=== PATIENT | female | born 1970 | race Caucasian/White ===

== ENCOUNTER → 2022-07-11 14:09 | Outpatient (CLI) | payer OTHER, SELFPAY ==
--- NOTE | 2022-07-11 14:25 | DI.CT.S_ITS ---
PROCEDURE: CT SINUS SCREEN WO CON INDICATIONS: CHRONIC PANSINUSITIS TECHNIQUE: Noncontrast 3.0 mm axial images acquired from the frontal sinuses to the mid-sella, with coronal and sagittal reformats. For radiation dose reduction, the following was used: automated exposure control, adjustment of mA and/or kV according to patient size. COMPARISON: None. FINDINGS: Image quality: Excellent. Maxillary Sinuses: No bony remodeling or destruction. Sinuses are clear. Ethmoid Air Cells: No bony remodeling or destruction. Sinuses are clear. Sphenoid Sinuses: No bony remodeling or destruction. Sinuses are clear. Frontal Sinuses: No bony remodeling or destruction. Sinuses are clear. Ostiomeatal Complexes: Ostiomeatal complexes are patent. No Malinda cells. Miscellaneous: Visualized intra-orbital contents are normal. No bharathi bullosa or paradoxical turbinate curvature. There is mild rightward nasal septal deviation. IMPRESSION: No significant active paranasal sinus disease. Dictated by: Ben Painting M.D. on 07/11/2022 at 13:34 Approved by: Ben Painting M.D. on 07/11/2022 at 13:35
== END ==
PROVIDERS: Referring Provider Otolaryngology; Visit Provider Otolaryngology
DX: J32.4 Chronic pansinusitis (principal)
CPT/HCPCS: 70486

== ENCOUNTER 2022-11-20 14:43 | Emergency (ER) | payer OTHER, SELFPAY ==
[2022-11-20] VITALS (10 sets, daily range): BP systolic 114–144; BP diastolic 59–95; PULSE 67–82; RESP 16–38; TEMP 36.6; O2SAT 93–98; BMI 35.3
[2022-11-20 15:34] LABS: Add Manual Diff / Slide Review NO; Basophils Absolute Auto 100 /uL (0-100); Basophils Percent Auto 1.1 % (0-2); Eosinophils Absolute Auto 200 /uL (0-450); Eosinophils Percent Auto 1.7 % (2-4); Hematocrit 45.6 % (36-46); Hemoglobin 15.7 g/dL (12.0-16.0); Lymphocytes Absolute Auto 3100 /uL (1100-4500); Lymphocytes Percent Auto 29.7 % (25-40); Mean Corpuscular HGB Conc 34.4 % (30-36); Mean Corpuscular Hemoglobin 32.2 PG (26-34); Mean Corpuscular Volume 93.6 fL (80-100); Monocytes Absolute Auto 700 /uL (0-900); Monocytes Percent Auto 6.5 % (3-14); Neutrophils Absolute Auto 6300 /uL (1500-7000); Platelet Count 264 X10^3/uL (150-400); Red Blood Cell Count 4.88 X10^6/uL (4.0-5.2); Red Cell Distribution Width 13.9 % (11.6-14.8); White Blood Cell Count 10.4 X10^3/uL (4.5-11.0)
[2022-11-20 15:43] LABS: Alanine Aminotransferase 23 IU/L (<35); Albumin 4.2 g/dL (3.5-5.0); Albumin Globulin Ratio 1.1 (1.0-2.8); Alkaline Phosphatase 112 U/L (38-126); Aspartate Aminotransferase 25 IU/L (14-36); BUN Creatinine Ratio 25.8 (6-22); Bilirubin Total 0.5 mg/dL (0.2-1.3); Blood Urea Nitrogen 17 mg/dL (7-17); Calcium 9.5 mg/dL (8.4-10.2); Carbon Dioxide 25 mmol/L (22-32); Chloride 99 mmol/L (98-107); Estimated Glomerular Filt Rate > 60 mL/min (>60); Globulin 3.9 g/dL (1.7-4.1); Glucose 327 mg/dL (70-100); HEMOLYSIS < 15 (0-50); Lipase 66 U/L (23-300); Potassium 4.6 mmol/L (3.4-5.1); Sodium 131 mmol/L (137-145); Total Protein 8.1 g/dL (6.3-8.2)
[2022-11-20 15:52] LABS: Bacteria Urine None Seen; RBC Urine 0-1/HPF (0-5/HPF); Squamous Epithelial Cell Urine 0-1 /HPF (0-5/HPF); WBC Urine 0-1/HPF (0-5/HPF)
[2022-11-20 15:54] LABS: Pregnancy Test Urine Negative (Negative)
[2022-11-20] MEDS: ONDANSETRON 4 MG/2 ML INJ IV (17:25)
[2022-11-20] MEDS: ACETAMINOPHEN 325 MG TABLET 975 MG PO (17:31)
[2022-11-20 18:58] LABS: Appearance Urine UA CLEAR; Bilirubin Urine UA 1+ (NEGATIVE); Color Urine UA YELLOW; Glucose Urine UA 2+ g/dL (Negative); Ketones Urine UA 2+ (NEGATIVE); Leukocyte Esterase Urine UA NEGATIVE (NEGATIVE); Nitrite Urine UA NEGATIVE (Negative); Occult Blood Urine UA TRACE-INTACT (Negative); Protein Urine UA NEGATIVE (Negative); Specific Gravity Urine UA 1.015 (1.000-1.035); Urobilinogen Urine UA 0.2 E.U./dL (0.2)
[2022-11-20 19:03] LABS: Ictotest Urine Negative (Negative)
[2022-11-20] MEDS: SODIUM CHLORIDE 0.9% 1,000 ML 1000 ML IV (19:37)
--- NOTE | 2022-11-20 20:47 | ED_ITS ---
HPI - General Adult General Chief complaint: Diabetic Problem Stated complaint: Possible DKA Time Seen by Provider: 11/20/22 19:43 Source: patient Mode of arrival: Ambulatory History of Present Illness HPI narrative: 52-year-old female nonsmoker with history of diabetes presents with concerns of possible DKA. She is been having dizziness and lightheadedness with headaches for many months and has had extensive workups without any significant findings. Blood glucose has been 3-400 for the past week or so. Recently had change in her medications from Lantus to glargine and suggest this isn't working quite as well. She denies runny nose, sore throat, chest pain or cough. She denies any fever or chills. She is had no urinary complaints denies any diarrhea. Related Data Allergies Allergy/AdvReac Type Severity Reaction Status Date / Time cephalexin [From Keflex] Allergy Unknown Verified 11/20/22 15:11 Sulfa (Sulfonamide Allergy Unknown Verified 11/20/22 15:11 Antibiotics) Review of Systems Review of Systems Narrative: GENERAL: Denies chills, fatigue, malaise, fever, sweats. HEENT: Denies sinus pain, ear pain, sore throat, difficulty swallowing, dizziness. RESPIRATORY: Denies dyspnea, cough, wheezing, hemoptysis, sputum. CARDIOVASCULAR: Denies chest pain, palpitations, orthopnea, edema, GASTROINTESTINAL: Denies nausea, vomiting, abdominal pain, diarrhea, constipation, melena. : Denies dysuria, frequency, incontinence, hematuria, urinary retention. MUSCULOSKELETAL: denies weakness, joint pain, or bony pain SKIN: Denies rash, skin lesions, or other NEUROLOGIC: Denies weakness, headache, numbness, change in speech, confusion, seizures, incoordination. PSYCHIATRIC: No concerning psychosocial issues. 12 point review of systems is negative except for those stated above Patient History Social History Smoking Status: Current every day smoker Smoking Status: Current every day smoker alcohol intake frequency: a few times a month Substance Use Type: marijuana Exam Narrative Exam Narrative: GENERAL: [52] year old patient appears stated age. Well-developed patient, in mild distress. HEAD: Atraumatic. Normocephalic. EYES: Pupils equal round and reactive. Extraocular motions intact. No scleral icterus. No injection or drainage. ENT: Nose without bleeding, purulent drainage. Throat without erythema, tonsillar hypertrophy or exudate. Airway patent. NECK: Trachea midline. Non tender CARDIOVASCULAR: Regular rate and rhythm without murmurs, gallops, or rubs. RESPIRATORY: Clear to auscultation. Breath sounds equal bilaterally. No wheezes, rales, or rhonchi. GASTROINTESTINAL: Abdomen soft, non-tender, nondistended. EXTREMITIES: No edema or joint tenderness. BACK: Nontender without deformity or crepitance. No flank tenderness. NEURO: AOx3. SKIN: No rash or erythema of visible areas Initial Vital Signs Initial Vital Signs: Vital Signs Temperature 97.9 F 11/20/22 15:00 Pulse Rate 67 11/20/22 15:00 Respiratory Rate 18 11/20/22 15:00 Blood Pressure 140/60 11/20/22 15:00 Pulse Oximetry 97 11/20/22 15:00 Oxygen Delivery Method Room Air 11/20/22 15:00 Course Orders Ordered: ED Orders 11/20/22 21:02 VBG [Venous Blood Gas] Stat 11/20/22 21:04 Troponin & CK Cardiac Panel Stat Discontinued Medications Acetaminophen (Acetaminophen 325 Mg Tablet) 975 mg PO NOW ONE Stop: 11/20/22 17:30 Last Admin: 11/20/22 17:31 Dose: 975 mg Documented By: AT Sodium Chloride (Normal Saline 0.9%) 1,000 mls @ 1,000 mls/hr IV BOLUS ONE Stop: 11/20/22 20:32 Last Infusion: 11/20/22 20:59 Dose: 0 mls/hr Documented By: Admin: 11/20/22 19:37 Dose: 1,000 mls/hr Documented By: Lactated Ringer's (Lactated Ringers) 1,000 mls @ 1,000 mls/hr IV BOLUS ONE Stop: 11/20/22 21:53 Last Infusion: 11/20/22 21:59 Dose: 0 mls/hr Documented By: Admin: 11/20/22 21:11 Dose: 1,000 mls/hr Documented By: Ibuprofen (Ibuprofen 400 Mg Tablet) 600 mg PO NOW ONE Stop: 11/20/22 21:50 Last Admin: 11/20/22 21:53 Dose: 600 mg Documented By: SB Ondansetron HCl (Ondansetron 4 Mg Odt) 4 mg PO NOW PRN PRN Reason: Nausea And Vomiting Ondansetron HCl (Ondansetron 4 Mg/2 Ml Inj) 4 mg IV NOW PRN PRN Reason: Nausea And Vomiting Last Admin: 11/20/22 17:25 Dose: 4 mg Documented By: AT Vital Signs Vital signs: Vital Signs - 8 hr 11/20/22 19:30 11/20/22 19:30 11/20/22 20:00 Pulse Rate 74 Respiratory Rate 19 Blood Pressure 127/61 114/63 Pulse Oximetry 96 Oxygen Delivery Method 11/20/22 20:00 11/20/22 20:30 11/20/22 20:30 Pulse Rate 74 70 Respiratory Rate 18 16 Blood Pressure 139/66 Pulse Oximetry 95 98 Oxygen Delivery Method 11/20/22 21:03 11/20/22 21:30 11/20/22 21:30 Pulse Rate 74 75 Respiratory Rate 38 H Blood Pressure 128/59 L Pulse Oximetry 95 93 Oxygen Delivery Method 11/20/22 22:00 Pulse Rate 72 Respiratory Rate 17 Blood Pressure 128/59 L Pulse Oximetry 97 Oxygen Delivery Method Room Air Medical Decision Making Lab Data 11/20/22 15:08 11/20/22 15:08 Labs: Lab Results 11/20/22 11/20/22 11/20/22 Range/Units 15:08 15:08 15:08 WBC 10.4 (4.5-11.0) X10^3/uL RBC 4.88 (4.0-5.2) X10^6/uL Hgb 15.7 (12.0-16.0) g/dL Hct 45.6 (36-46) % MCV 93.6 (80-100) fL MCH 32.2 (26-34) PG MCHC 34.4 (30-36) % RDW 13.9 (11.6-14.8) % Plt Count 264 (150-400) X10^3/uL Neut % (Auto) 61.0 (50-75) % Lymph % (Auto) 29.7 (25-40) % [place] % (Auto) 6.5 (3-14) % Eos % (Auto) 1.7 L (2-4) % Baso % (Auto) 1.1 (0-2) % Neut # (Auto) 6300 (8687-5473) /uL Lymph # (Auto) 3100 (3901-2784) /uL [place] # (Auto) 700 (0-900) /uL Eos # (Auto) 200 (0-450) /uL Baso # (Auto) 100 (0-100) /uL VBG pH (7.33-7.43) VBG pCO2 (45-50) mmHg VBG pO2 (35-45) mmHg VBG HCO3 (24-28) mmol/L VBG Total CO2 (24-29) mmol/L VBG O2 Saturation (70-75) % VBG Base Excess (0-4) mmol/L FiO2 Sodium 131 L (137-145) mmol/L Potassium 4.6 (3.4-5.1) mmol/L Chloride 99 (98-107) mmol/L Carbon Dioxide 25 (22-32) mmol/L BUN 17 (7-17) mg/dL Creatinine 0.66 (0.52-1.04) mg/dL Estimated GFR > 60 (>60) mL/min BUN/Creatinine Ratio 25.8 H (6-22) Glucose 327 H (70-100) mg/dL Calcium 9.5 (8.4-10.2) mg/dL Total Bilirubin 0.5 (0.2-1.3) mg/dL AST 25 (14-36) IU/L ALT 23 (<35) IU/L Alkaline Phosphatase 112 (38-126) U/L Total Creatine Kinase (30-135) U/L CK-MB (CK-2) CK-MB (CK-2) Rel Index Troponin I (0.01-0.034) ng/mL Total Protein 8.1 (6.3-8.2) g/dL Albumin 4.2 (3.5-5.0) g/dL Globulin 3.9 (1.7-4.1) g/dL Albumin/Globulin Ratio 1.1 (1.0-2.8) Lipase 66 (23-300) U/L Urine Color Urine Appearance Urine pH (4.5-8.0) Ur Specific [place] (1.000-1.035) Urine Protein (Negative) Urine Glucose (UA) (Negative) g/dL Urine Ketones (NEGATIVE) Urine Occult Blood (Negative) Urine Nitrate (Negative) Urine Bilirubin (NEGATIVE) Ur Bilirubin Confirm (Negative) Urine Urobilinogen (0.2) E.U./dL Ur Leukocyte Esterase (NEGATIVE) Urine RBC (0-5/HPF) Urine WBC (0-5/HPF) Ur Squamous Epith Cells (0-5/HPF) Urine Bacteria (None) Urine Test (Negative) Ketones Cancelled 11/20/22 11/20/22 11/20/22 Range/Units 15:18 15:18 15:18 WBC (4.5-11.0) X10^3/uL RBC (4.0-5.2) X10^6/uL Hgb (12.0-16.0) g/dL Hct (36-46) % MCV (80-100) fL MCH (26-34) PG MCHC (30-36) % RDW (11.6-14.8) % Plt Count (150-400) X10^3/uL Neut % (Auto) (50-75) % Lymph % (Auto) (25-40) % [place] % (Auto) (3-14) % Eos % (Auto) (2-4) % Baso % (Auto) (0-2) % Neut # (Auto) (5653-0653) /uL Lymph # (Auto) (1522-7705) /uL [place] # (Auto) (0-900) /uL Eos # (Auto) (0-450) /uL Baso # (Auto) (0-100) /uL VBG pH (7.33-7.43) VBG pCO2 (45-50) mmHg VBG pO2 (35-45) mmHg VBG HCO3 (24-28) mmol/L VBG Total CO2 (24-29) mmol/L VBG O2 Saturation (70-75) % VBG Base Excess (0-4) mmol/L FiO2 Sodium (137-145) mmol/L Potassium (3.4-5.1) mmol/L Chloride (98-107) mmol/L Carbon Dioxide (22-32) mmol/L BUN (7-17) mg/dL Creatinine (0.52-1.04) mg/dL Estimated GFR (>60) mL/min BUN/Creatinine Ratio (6-22) Glucose (70-100) mg/dL Calcium (8.4-10.2) mg/dL Total Bilirubin (0.2-1.3) mg/dL AST (14-36) IU/L ALT (<35) IU/L Alkaline Phosphatase (38-126) U/L Total Creatine Kinase (30-135) U/L CK-MB (CK-2) CK-MB (CK-2) Rel Index Troponin I (0.01-0.034) ng/mL Total Protein (6.3-8.2) g/dL Albumin (3.5-5.0) g/dL Globulin (1.7-4.1) g/dL Albumin/Globulin Ratio (1.0-2.8) Lipase (23-300) U/L Urine Color Yellow Urine Appearance Clear Urine pH 6.0 (4.5-8.0) Ur Specific [place] 1.015 (1.000-1.035) Urine Protein Negative (Negative) Urine Glucose (UA) 2+ H (Negative) g/dL Urine Ketones 2+ H (NEGATIVE) Urine Occult Blood Trace-intact (Negative) Urine Nitrate Negative (Negative) Urine Bilirubin 1+ H (NEGATIVE) Ur Bilirubin Confirm Negative (Negative) Urine Urobilinogen 0.2 (0.2) E.U./dL Ur Leukocyte Esterase Negative (NEGATIVE) Urine RBC 0-1/hpf (0-5/HPF) Urine WBC 0-1/hpf (0-5/HPF) Ur Squamous Epith Cells 0-1 /hpf (0-5/HPF) Urine Bacteria None seen (None) Urine Test Negative (Negative) Ketones 11/20/22 11/20/22 Range/Units 21:02 21:04 WBC (4.5-11.0) X10^3/uL RBC (4.0-5.2) X10^6/uL Hgb (12.0-16.0) g/dL Hct (36-46) % MCV (80-100) fL MCH (26-34) PG MCHC (30-36) % RDW (11.6-14.8) % Plt Count (150-400) X10^3/uL Neut % (Auto) (50-75) % Lymph % (Auto) (25-40) % [place] % (Auto) (3-14) % Eos % (Auto) (2-4) % Baso % (Auto) (0-2) % Neut # (Auto) (4991-1667) /uL Lymph # (Auto) (3513-6100) /uL [place] # (Auto) (0-900) /uL Eos # (Auto) (0-450) /uL Baso # (Auto) (0-100) /uL VBG pH 7.30 L (7.33-7.43) VBG pCO2 65.2 H (45-50) mmHg VBG pO2 12 L (35-45) mmHg VBG HCO3 32 H (24-28) mmol/L VBG Total CO2 34 H (24-29) mmol/L VBG O2 Saturation 10 L (70-75) % VBG Base Excess 6.0 H (0-4) mmol/L FiO2 21 Sodium (137-145) mmol/L Potassium (3.4-5.1) mmol/L Chloride (98-107) mmol/L Carbon Dioxide (22-32) mmol/L BUN (7-17) mg/dL Creatinine (0.52-1.04) mg/dL Estimated GFR (>60) mL/min BUN/Creatinine Ratio (6-22) Glucose (70-100) mg/dL Calcium (8.4-10.2) mg/dL Total Bilirubin (0.2-1.3) mg/dL AST (14-36) IU/L ALT (<35) IU/L Alkaline Phosphatase (38-126) U/L Total Creatine Kinase 73 (30-135) U/L CK-MB (CK-2) TNP CK-MB (CK-2) Rel Index TNP Troponin I < 0.012 (0.01-0.034) ng/mL Total Protein (6.3-8.2) g/dL Albumin (3.5-5.0) g/dL Globulin (1.7-4.1) g/dL Albumin/Globulin Ratio (1.0-2.8) Lipase (23-300) U/L Urine Color Urine Appearance Urine pH (4.5-8.0) Ur Specific [place] (1.000-1.035) Urine Protein (Negative) Urine Glucose (UA) (Negative) g/dL Urine Ketones (NEGATIVE) Urine Occult Blood (Negative) Urine Nitrate (Negative) Urine Bilirubin (NEGATIVE) Ur Bilirubin Confirm (Negative) Urine Urobilinogen (0.2) E.U./dL Ur Leukocyte Esterase (NEGATIVE) Urine RBC (0-5/HPF) Urine WBC (0-5/HPF) Ur Squamous Epith Cells (0-5/HPF) Urine Bacteria (None) Urine Test (Negative) Ketones Point of Care Testing Glucose POC 171 Point of care testing: Point of Care Testing Glucose POC 171 ECG Data Interpretation: [t1933] EKG is normal sinus rhythm rate [ 74] and free of any signs of ischemia or ectopy. No ST segmental elevation or depression. No T wave inversions MDM Narrative Medical decision making narrative: CC: 52-year-old female with elevated blood sugars Complicating co-morbidities: Diabetic, smoker Data collected from: Patient Medical records reviewed: Prior notes reviewed in our EMR Differential considered, but not limited to: Diabetic issue, dehydration, cardiac versus other Exam documented above, pertinent findings include: No nystagmus, heart rate regular, lungs clear. Abdomen soft Lab Test results independently reviewed as above. Pertinent findings: Independently reviewed EKG as above Treatments:Saline Re-evaluations: Patient feeling much better, no dizziness, no nausea or vomiting, vital signs improved Discussion: Patient is sent for evaluation of elevated blood sugars and vague symptoms including dizziness. Patient has reassuring history and physical exam, vitals are stable, labs demonstrate mild hyperglycemia but no evidence of DKA, no acidosis, anion gap or abnormal bicarb. Patient given a few L of fluid and f eels much better, blood glucose down to the 170s. She is had no infectious symptoms or obvious sources. She has had a relatively recent change in her diabetic regimen and we did discuss that her primary care provider is the most appropriate person to potentially alter the insulin regimen. Disposition: see below, along with detailed discharge instructions that have been reviewed with patient as well as indications for ED re-evaluation and additional outpatient follow up Discharge Plan Departure Patient Disposition: Home Clinical Impression: Diabetes mellitus Instructions: DI for Hyperglycemia -- Adult Activity Restrictions/Additional Instructions: *You have been diagnosed with [hyperglycemia which thankfully is greatly improved. There is no indication that you have diabetic ketoacidosis] *What to do: *Please continue to take your regular medications as directed. *Please follow up with your primary care provider in 2-3 days, call for an appointment. Let them know you were seen in the Emergency Department and that we ask that you be seen in follow up. We will electronically transmit a record of today's note if your PCP is in our system *If you do not have a primary care provider please contact the [facility] Resource line at [phone]. They will ask some questions about your medical history and help get you set up with a doctor in the community. *Return to Emergency Department if you should have any new, worsening or concerning symptoms, such as [fever greater than 101 F, shaking chills, worsening pain, persistent vomiting or other bothersome symptoms] Stand Alone Forms: Patient Portal/API
[2022-11-20 21:11] LABS: PCO2 VBG 65.2 mmHg (45-50); PO2 VBG 12 mmHg (35-45)
[2022-11-20] MEDS: LACTATED RINGERS 1,000 ML 1000 ML IV (21:11)
[2022-11-20 21:12] LABS: Fractionated Inspired Oxygen 21; HCO3 VBG 32 mmol/L (24-28); Oxygen Saturation VBG 10 % (70-75); Total CO2 VBG 34 mmol/L (24-29)
[2022-11-20 21:23] LABS: Creatine Kinase 73 U/L (30-135)
[2022-11-20 21:35] LABS: Troponin I < 0.012 ng/mL (0.01-0.034)
[2022-11-20] MEDS: IBUPROFEN 400 MG TABLET 600 MG PO (21:53)
[2022-11-21 19:15] LABS: Ketones (Beta-Hydroxybutyrate) 0.18 mmol/L (<0.27)
== END 2022-11-20 22:02 | disposition home or self-care (01) ==
PROVIDERS: Emergency Medicine; Emergency Provider Emergency Medicine
DX: E11.65 Type 2 diabetes mellitus with hyperglycemia (principal); R03.1 Nonspecific low blood-pressure reading; Z79.4 Long term (current) use of insulin
CPT/HCPCS: 36415; 80053; 81003; 81015; 81025; 82009; 82550; 82805; 82962; 83690; 84484; 85025; 93005; 96374; 99284; J2405